=== PATIENT | female | born 1975 | race Caucasian/White ===

== ENCOUNTER 2018-02-12 23:11 | Emergency (ER) | payer SELFPAY ==
[2018-02-12 23:24] VITALS: BP 146/81; PULSE 84; RESP 17; TEMP 98.3; O2SAT 100; BMI 24.0
--- NOTE | 2018-02-12 23:37 | ED PDOC ---
Arrival/HPI - General Historian: Patient - History of Present Illness Time/Duration: 4-6 hours Symptom Onset: Sudden Symptom Course: Unchanged Quality: Aching Activities at Onset: Rest Context: Sitting, Standing, Walking <Tico Morgan - Last Filed: 02/12/18 23:38> <Hussein Tam - Last Filed: 02/12/18 23:47> - General Chief Complaint: Lower Extremity Problem/Injury Time Seen by Provider: 02/12/18 23:33 - History of Present Illness Narrative History of Present Illness (Text): 02/12/18 23:33 Patient is a 42F with a PMH of ulcerative colitis, GERD, diabetes who comes to the Emergency department after hitting her R. great toe against a wall breaking the nail. At the time of the incident the nail flipped backwards. Nothing makes the pain better. She describes it as a pulsating pain. Wearing shoes makes the pain worse. The pain is constant. It does not radiate. She has no other complaints at this time. (Tico Morgan) Past Medical History - Cardiac Hx Cardiac Disorders: No - Pulmonary Hx Respiratory Disorders: No - Neurological Hx Neurological Disorder: No - HEENT Hx HEENT Disorder: No - Renal Hx Renal Disorder: No - Endocrine/Metabolic Hx Endocrine Disorders: Yes Hx Diabetes Mellitus Type 1: Yes - Hematological/Oncological Hx Blood Disorders: No - Integumentary Hx Dermatological Disorder: No - Musculoskeletal/Rheumatological Hx Musculoskeletal Disorders: No - Gastrointestinal Hx Gastrointestinal Disorders: No - Genitourinary/Gynecological Hx Genitourinary Disorders: No - Psychiatric Hx Psychophysiologic Disorder: No Hx Substance Use: No - Surgical History Hx Appendectomy: Yes Hx Cholecystectomy: Yes <Tico Morgan - Last Filed: 02/12/18 23:38> - Provider Review Nursing Documentation Reviewed: Yes <Hussein Tam - Last Filed: 02/12/18 23:47> Family/Social History Family/Social History: Unknown Family HX Smoking Status: Never Smoked Hx Alcohol Use: No Hx Substance Use: No <Tico Morgan - Last Filed: 02/12/18 23:38> - Physician Review Nursing Documentation Reviewed: Yes <Hussein Tam - Last Filed: 02/12/18 23:47> Allergies/Home Meds <Tico Morgan - Last Filed: 02/12/18 23:38> <YonatanHussein Last Filed: 02/12/18 23:47> Allergies/Adverse Reactions: Allergies No Known Allergies Allergy (Verified 02/12/18 23:16) Home Medications: Home Meds Medication Instructions Recorded Confirmed No Known Home Med 02/12/18 02/12/18 Review of Systems - Review of Systems Constitutional: Normal Eyes: Normal ENT: Normal Respiratory: Normal Cardiovascular: Normal Gastrointestinal: Normal Genitourinary Female: Normal Musculoskeletal: Other (great toe pain on the right) Skin: Normal Neurological: Normal Endocrine: Normal Hemo/Lymphatic: Normal Psychiatric: Normal <CathyTico Last Filed: 02/12/18 23:38> - Physician Review All systems were reviewed & negative as marked: Yes <YonatanHussein Last Filed: 02/12/18 23:47> Physical Exam Temperature: Afebrile Blood Pressure: Normal Pulse: Regular Respiratory Rate: Normal Appearance: Positive for: Well-Appearing, Non-Toxic, Comfortable Pain Distress: None Mental Status: Positive for: Alert and Oriented X 3 - Systems Exam Head: Present: Atraumatic, Normocephalic Pupils: Present: PERRL Extroacular Muscles: Present: EOMI Conjunctiva: Present: Normal Mouth: Present: Moist Mucous Membranes Neck: Present: Normal Range of Motion Respiratory/Chest: Present: Clear to Auscultation, Good Air Exchange. No: Respiratory Distress, Accessory Muscle Use Cardiovascular: Present: Regular Rate and Rhythm, Normal S1, S2. No: Murmurs Abdomen: Present: Normal Bowel Sounds. No: Tenderness, Distention, Peritoneal Signs Upper Extremity: Present: Normal Inspection. No: Cyanosis, Edema Lower Extremity: Present: Other (L. great toenail chiped and seperated from nail bed. The base of the nail is still intact. No bleeding) <Tico Morgan - Last Filed: 02/12/18 23:38> Vital Signs Reviewed: Yes <Hussein Tam - Last Filed: 02/12/18 23:47> Vital Signs Temp Pulse Resp BP Pulse Ox 02/12/18 23:20 98.3 F 84 17 146/81 100 Medical Decision Making <CathyTico Last Filed: 02/12/18 23:38> <Hussein Tam - Last Filed: 02/12/18 23:47> ED Course and Treatment: 02/12/18 23:39 a dressing was applied to the nail. Patient instructed to change dressing daily with bacitracin until nail grows back and pushes the nail off. Patient is to follow up with podiatry. (Tico Morgan) Patient Seen With Resident: In agreement with resident note which contains more details about the patient. Patient was seen and evaluated with resident. Came up with plan and treatment together. 42 year old female presents complaining of broken right big toe nail s /p hitting it against the wall. (Hussein Tam) - PA / ANIMAL MAINTENANCE SUPERVISOR / Resident Statement MD/DO has reviewed & agrees with the documentation as recorded. MD/DO has examined the patient and agrees with the treatment plan. <Tico Morgan - Last Filed: 02/12/18 23:38> - Scribe Statement The provider has reviewed the documentation as recorded by the Scribe <Hussein Tam - Last Filed: 02/12/18 23:47> - Scribe Statement Ru Gomes Provider Scribe Attestation: All medical record entries made by the Scribe were at my direction and personally dictated by me. I have reviewed the chart and agree that the record accurately reflects my personal performance of the history, physical exam, medical decision making, and the department course for this patient. I have also personally directed, reviewed, and agree with the discharge instructions and disposition. (Hussein Tam) Disposition/Present on Arrival - Present on Arrival Any Indicators Present on Arrival: Yes History of DVT/PE: No History of Uncontrolled Diabetes: Yes Urinary Catheter: No History of Decub. Ulcer: No History Surgical Site Infection Following: None - Disposition Have Diagnosis and Disposition been Completed?: Yes Disposition Time: 23:40 Patient Plan: Discharge <Tico Morgan - Last Filed: 02/12/18 23:38> <Hussein Tam - Last Filed: 02/12/18 23:47> - Disposition Diagnosis: Toenail avulsion Condition: STABLE Additional Instructions: change dressing daily as instructed with triple antibiotic ointment take tylenol 650mg every 6 hours for pain as needed Please follow up with Airplane Flight Attendant within one week. Information of Airplane Flight Attendant is provided please follow up with primary care doctor in 7-10 days Ok to shower If develop fever or worsening redness or pain around toe, please come back to Emergency department Referrals: Beth Bajwa DPM [Staff Provider] - Follow up with primary Forms: DGSE (Lao)
== END 2018-02-13 00:23 | disposition home or self-care (01) ==
LOC: ED 23:11
DX: S91.202A Unspecified open wound of left great toe with damage to nail, initial encounter (principal); W22.01XA Walked into wall, initial encounter; Y92.89 Other specified places as the place of occurrence of the external cause

== ENCOUNTER 2018-05-08 13:20 | Emergency (ER) | payer OTHER ==
[2018-05-08 13:21] VITALS: BMI 24.0
[2018-05-08 14:01] VITALS: RESP 18; O2SAT 99
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
[2018-05-08 16:10] VITALS: BP 130/76; PULSE 82; TEMP 98.4
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
== END 2018-05-08 16:09 | disposition home or self-care (01) ==
LOC: ED 13:20
DX: S40.022A Contusion of left upper arm, initial encounter (principal); S40.021A Contusion of right upper arm, initial encounter; Y08.89XA Assault by other specified means, initial encounter; Y92.9 Unspecified place or not applicable